=== PATIENT | female | born 1955 | race Caucasian/White ===

== ENCOUNTER → 2022-09-06 10:40 | Outpatient (BNVA) | payer MEDICARE, MEDICAID, SELFPAY | PROVIDERS: Family Provider Family Medicine; Referring Provider Registered Nurse; Visit Provider Nurse Practitioner Family | DX: L81.4 Other melanin hyperpigmentation (principal); D22.5 Melanocytic nevi of trunk; Z71.89 Other specified counseling; L85.3 Xerosis cutis; L57.8 Other skin changes due to chronic exposure to nonionizing radiation; L72.0 Epidermal cyst; L82.1 Other seborrheic keratosis; L91.8 Other hypertrophic disorders of the skin | CPT/HCPCS: 10040; 11200; 99203 ==

== ENCOUNTER → 2024-12-11 09:24 | Outpatient (BNVA) | payer OTHER, MEDICAID, SELFPAY | PROVIDERS: Family Provider Family Medicine; PCP Family Medicine; Visit Provider Podiatrist Foot & Ankle Surgery | DX: M79.671 Pain in right foot (principal); M79.672 Pain in left foot; M21.611 Bunion of right foot; M21.612 Bunion of left foot; M20.41 Other hammer toe(s) (acquired), right foot; M20.42 Other hammer toe(s) (acquired), left foot; M19.071 Primary osteoarthritis, right ankle and foot; M19.072 Primary osteoarthritis, left ankle and foot | CPT/HCPCS: 73630; 99204 ==